=== PATIENT | male | born 1960 | race Caucasian/White ===

== ENCOUNTER → 2019-04-28 | Outpatient (CLI) | payer BC ==
[2012-05-18 18:31] VITALS: BP 137/97
[~2019-04-28] MED LIST: CADUET 5 MG-101 TAB PO; MULTI VITAMINS1 TAB PO; ST. JOSEPH81 M2 PO
== END ==
LOC: RAD 08:44
DX: M79.89 Other specified soft tissue disorders (principal)

== ENCOUNTER → 2020-10-07 | Outpatient (REF) ==
[2012-05-18 18:31] VITALS: BP 137/97
== END ==
LOC: LAB 08:17
DX: Z00.00 Encounter for general adult medical examination without abnormal findings (principal); Z12.11 Encounter for screening for malignant neoplasm of colon; Z12.5 Encounter for screening for malignant neoplasm of prostate

== ENCOUNTER → 2021-09-06 | Outpatient (CLI) | payer BC | LOC: CARDREHAB 09:06 | DX: G47.19 Other hypersomnia (principal) | CPT/HCPCS: G0399 ==

== ENCOUNTER → 2022-06-06 | Outpatient (REF) | LOC: LAB 09:16 | DX: Z00.00 Encounter for general adult medical examination without abnormal findings (principal); Z12.5 Encounter for screening for malignant neoplasm of prostate; Z12.11 Encounter for screening for malignant neoplasm of colon ==

== ENCOUNTER → 2024-08-01 | Outpatient (CLI) | payer BC ==
[2024-08-01 08:56] LABS: BASO # 0.01 K/mm3 (0.02-0.10); EOS # 0.34 K/mm3 (0.04-0.40); EOS % 6.1 % (0.0-4.0); HEMATOCRIT 46.5 % (42.0-52.0); HEMOGLOBIN 15.6 g/dL (13.5-18.0); LYMPH# 1.82 K/mm3 (1.50-4.00); MEAN CELL VOLUME 96 fl (78-100); MEAN CORPUSCULAR HEMOGLOBIN 32 pg (27-31); MEAN CORPUSCULAR HGB CONC 34 g/dL (33-37); MEAN PLATELET VOLUME 9.9 fl (7.4-10.4); MONO # 0.54 K/mm3 (0.20-0.80); NEU # 2.83 K/mm3 (1.40-6.50); PLATELET COUNT 200 K/mm3 (130-400); RED BLOOD COUNT 4.84 M/mm3 (4.20-5.60); RED CELL DISTRIBUTION WIDTH 12.1 % (11.5-14.5); WHITE BLOOD COUNT 5.6 K/mm3 (4.8-10.8)
[2024-08-01 09:01] LABS: ALBUMIN 4.4 g/dL (3.4-4.8)
[2024-08-01 09:02] LABS: CALCIUM 9.6 mg/dL (8.3-10.5)
[2024-08-01 09:03] LABS: TOTAL PROTEIN 7.3 g/dL (6.2-8.1)
[2024-08-01 09:05] LABS: TOTAL BILIRUBIN 0.6 mg/dL (0.2-1.2)
[2024-08-01 09:09] LABS: MAGNESIUM 1.94 mg/dL (1.60-2.60)
[2024-08-01 09:16] LABS: URINE APPEARANCE SLIGHTLY CLOUDY (CLEAR); URINE COLOR YELLOW (YELLOW)
[2024-08-01 09:17] LABS: URINE BILIRUBIN NEGATIVE (NEGATIVE); URINE BLOOD NEGATIVE (NEGATIVE); URINE GLUCOSE NEGATIVE (NEGATIVE); URINE KETONE NEGATIVE (NEGATIVE); URINE LEUKOCYTE ESTERASE NEGATIVE (NEGATIVE); URINE MUCUS PRESENT (NOT PRESENT); URINE NITRATE NEGATIVE (NEGATIVE); URINE PROTEIN(semi-quant) NEGATIVE (NEGATIVE); URINE WBC 0-1 /hpf (0-3)
[2024-08-01 23:09] LABS: TESTOSTERONE 270 ng/dL (221-716)
== END ==
LOC: RAD 08:30 → LAB 08:51
PROVIDERS: Internal Medicine
DX: Z00.00 Encounter for general adult medical examination without abnormal findings (principal); Z12.11 Encounter for screening for malignant neoplasm of colon; Z12.5 Encounter for screening for malignant neoplasm of prostate; R09.89 Other specified symptoms and signs involving the circulatory and respiratory systems

== ENCOUNTER → 2024-11-17 | Outpatient (REF) | payer BC | LOC: LAB 08:43 → EDSTATUS 08:48 | DX: E78.2 Mixed hyperlipidemia (principal) ==